=== PATIENT | male | born 1995 ===

== ENCOUNTER → 2020-05-11 | Outpatient (CLI) | payer OTHER | LOC: ZLAB.KSTAT 12:51 | DX: Z20.828 Contact with and (suspected) exposure to other viral communicable diseases (principal) ==

== ENCOUNTER 2021-04-27 09:22 | Emergency (ER) | payer OTHER ==
[~2021-04-27] VITALS: Ht 193 cm; Wt 111.4 kg
[2021-04-27 09:34] VITALS: BP 149/106; TEMP 98.1
[2021-04-27] MEDS ORDERED: CEPHALEXIN500 M1 PO (10:02)
[2021-04-27 10:14] VITALS: PULSE 56
== END 2021-04-27 10:14 | disposition home or self-care (01) ==
LOC: COL.ER 09:22
DX: S61.412A Laceration without foreign body of left hand, initial encounter (principal); W25.XXXA Contact with sharp glass, initial encounter; Y99.0 Civilian activity done for income or pay

== ENCOUNTER → 2021-05-05 | Outpatient (CLI) | payer OTHER ==
[~2021-05-05] MED LIST: CEPHALEXIN500 M1 PO
[2021-05-05 11:50] VITALS: PULSE 72; TEMP 98.7
== END ==
LOC: COL.ER 11:36
DX: Z48.02 Encounter for removal of sutures (principal)